=== PATIENT | female | born 1950 | race Hispanic/Latino ===

== ENCOUNTER 2017-07-11 09:14 | Day surgery (SDC) | payer OTHER ==
[~2017-07-11] VITALS: Ht 160 cm; Wt 62.9 kg
[~2017-07-11 09:14] MED LIST: CALC-724 PO; CARB-38 PO; FERS325 PO; OMEG1CAP83 PO; RISE35TA12 PO; SODIUM CHLORIDE 0.9% 1000ML 1,000 ML IV ONE
[2017-07-11 09:21] VITALS: BP 180/67
[2017-07-11] MEDS ORDERED: FENTANYL CITRATE PF 50 MCG/1 ML 2ML VIAL ONE (10:16)
[2017-07-11] MEDS ORDERED: PROPOFOL 10 MG/ML 20ML VIAL IV ONE (10:16)
[2017-07-11 10:33] VITALS: BP 120/50
== END 2017-07-11 10:20 ==
LOC: DAH 09:14 → ENDO 09:14
PROVIDERS: ATTEND Internal Medicine Gastroenterology
DX: Z09 Encounter for follow-up examination after completed treatment for conditions other than malignant neoplasm (principal); K63.89 Other specified diseases of intestine; Z86.010 Personal history of colon polyps; M19.90 Unspecified osteoarthritis, unspecified site; D64.89 Other specified anemias; Z79.899 Other long term (current) drug therapy; Z98.890 Other specified postprocedural states
CPT/HCPCS: 45378; A4606; J2704; J3010; J7030